=== PATIENT | male | born 2000 | race Caucasian/White ===

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

== ENCOUNTER → 2020-05-29 | Outpatient (CLI) | payer OTHER ==
[2020-05-29 16:40] VITALS: BP 131/82; PULSE 66; TEMP 99.1
== END ==
LOC: COL.ER 16:23
DX: Z48.02 Encounter for removal of sutures (principal)